=== PATIENT | female | born 1955 | race Caucasian/White ===

== ENCOUNTER 2024-05-25 16:12 | Emergency (ER) | payer SELFPAY ==
[2024-05-25 16:23] VITALS: RESP 18; TEMP 98.2
--- NOTE | 2024-05-25 16:46 | ED ---
Female Urogenital HPI - General Chief complaint: Urogenital Stated complaint: UTI Time Seen by Provider: 05/25/24 16:30 Source: patient, RN notes reviewed Mode of arrival: ambulatory Limitations: no limitations - History of Present Illness Initial comments: 68-year-old female presenting to the ER with chief complaint of dysuria x 2 days. States it feels as though it is "warm" when she urinates as well as urinary frequency. Denies back pain, abdominal pain, fever, chills, vomiting, vaginal discharge. Denies any known medical conditions. - Related Data Previous Rx's Medication Instructions Recorded Sulfamethox-Tmp 800-160Mg [Bactrim 1 each PO Q12HR 7 Days #14 tab 05/25/24 Ds] Allergies Allergy/AdvReac Type Severity Reaction Status Date / Time latex Allergy Unknown Verified 05/25/24 16:18 Penicillins Allergy Unknown Verified 05/25/24 16:18 lactose AdvReac Unknown Verified 05/25/24 16:18 Review of Systems ROS Statement: Those systems with pertinent positive or pertinent negative responses have been documented in the HPI. ROS Other: All systems not noted in ROS Statement are negative. Past Medical History Additional Past Medical History / Comment(s): torticollis, scoliosis Past Surgical History: Back Surgery Past Psychological History: Depression Smoking Status: Never smoker Past Alcohol Use History: None Reported Past Drug Use History: None Reported General Exam Limitations: no limitations General appearance: alert, in no apparent distress Head exam: Present: atraumatic, normocephalic, normal inspection Eye exam: Present: normal appearance, PERRL, EOMI. Absent: scleral icterus, conjunctival injection, periorbital swelling GI/Abdominal exam: Present: soft, normal bowel sounds. Absent: distended, tenderness, guarding, rebound, rigid Extremities exam: Absent: calf tenderness Neurological exam: Present: alert, oriented X3 Psychiatric exam: Present: normal affect, normal mood Skin exam: Present: warm, dry, intact, normal color Course Vital Signs 05/25/24 05/25/24 16:18 21:10 Temperature 98.2 F Pulse Rate 81 78 Respiratory 18 18 Rate Blood Pressure 164/106 155/89 O2 Sat by Pulse 98 95 Oximetry Medical Decision Making - Medical Decision Making Was pt. sent in by a medical professional or institution (, PA, DIGITAL COURT REPORTER, urgent care, hospital, or penitentiary...) When possible be specific @ -No Did you speak to anyone other than the patient for history (EMS, parent, family, police, friend...)? What history was obtained from this source @ -No Did you review nursing and triage notes (agree or disagree)? Why? @ -I reviewed and agree with nursing and triage notes Were old charts reviewed (outside hosp., previous admission, EMS record, old EKG, old radiological studies, urgent care reports/EKG's, penitentiary records)? Report findings @ -No old charts were reviewed Differential Diagnosis (chest pain, altered mental status, abdominal pain women, abdominal pain men, vaginal bleeding, weakness, fever, dyspnea, syncope, headache, dizziness, GI bleed, back pain, seizure, CVA, palpatations, mental health, musculoskeletal)? @ -Urinary tract infection, STD, nephrolithiasis EKG interpreted by me (3pts min.). @ -None X-rays interpreted by me (1pt min.). @ -None done CT interpreted by me (1pt min.). @ -None done U/S interpreted by me (1pt. min.). @ -None done What testing was considered but not performed or refused? (CT, X-rays, U/S, labs)? Why? @ -Lab work considered but deferred deferred due to no red flag symptoms or abdominal tenderness What meds were considered but not given or refused? Why? @ -None Did you discuss the management of the patient with other professionals (professionals i.e. , PA, DIGITAL COURT REPORTER, lab, RT, psych nurse, transition social worker, bar porter, teacher, chief quality officer, caser in)? Give summary @ -No Was smoking cessation discussed for >3mins.? @ -No Was critical care preformed (if so, how long)? @ -No Were there social determinants of health that impacted care today? How? (Homelessness, low income, unemployed, alcoholism, drug addiction, transportation, low edu. Level, literacy, decrease access to med. care, half-way, rehab)? @ -No Was there de-escalation of care discussed even if they declined (Discuss DNR or withdrawal of care, Hospice)? DNR status @ -No What co-morbidities impacted this encounter? (DM, HTN, Smoking, COPD, CAD, Cancer, CVA, ARF, Chemo, Hep., AIDS, mental health diagnosis, sleep apnea, morbid obesity)? @ -None Was patient admitted / discharged? Hospital course, mention meds given and r oute, prescriptions, significant lab abnormalities, going to OR and other pertinent info. @ -Discharged. This is a 68-year-old female presenting with dysuria x 2 days. Patient is afebrile with no CVA tenderness. No red flag symptoms. Patient is hypertensive at 164/106, decreased to 155/89 upon recheck. Urinalysis reveals moderate blood, small leukocyte esterase, urine culture sent. Patient updated on results. Will treat with Bactrim for possible UTI. Advised close follow-up with PCP within the week. Return precautions discussed. Patient is agreeable to plan. Case was discussed with my ED attending Dr. Canales. Undiagnosed new problem with uncertain prognosis? @ -No Drug Therapy requiring intensive monitoring for toxicity (Heparin, Nitro, Insulin, Cardizem)? @ -No Were any procedures done? @ -No Diagnosis/symptom? @ -Urinary tract infection Acute, or Chronic, or Acute on Chronic? @ -Acute Uncomplicated (without systemic symptoms) or Complicated (systemic symptoms)? @ -Uncomplicated Side effects of treatment? @ -No Exacerbation, Progression, or Severe Exacerbation? @ -No Poses a threat to life or bodily function? How? (Chest pain, [place], [place], pneumonia, PE, COPD, DKA, ARF, appy, cholecystitis, CVA, Diverticulitis, Homicidal, Suicidal, threat to staff... and all critical care pts) @ -No - Lab Data Lab Results 05/25/24 Range/Units 16:39 Urine Color Yellow Urine Appearance Cloudy H (Clear) Urine pH 5.5 (5.0-8.0) Ur Specific [place] 1.032 (1.001-1.035) Urine Protein Trace H (Negative) Urine Glucose (UA) Negative (Negative) Urine Ketones Negative (Negative) Urine Blood Moderate H (Negative) Urine Nitrite Negative (Negative) Urine Bilirubin Negative (Negative) Urine Urobilinogen 4.0 (<2.0) mg/dL Ur Leukocyte Esterase Small H (Negative) Urine RBC 8 H (0-5) /hpf Urine WBC 7 H (0-5) /hpf Ur Squamous Epith Cells 1 (0-4) /hpf Calcium Oxalate Crystal Rare H (None) /hpf Disposition Clinical Impression: Urinary tract infection Disposition: HOME SELF-CARE Condition: Stable Instructions (If sedation given, give patient instructions): Urinary Tract Infection in Women (ED) Additional Instructions: Follow-up with PCP as discussed. Take Bactrim twice daily for 7 days. Please return to the Emergency Department if symptoms worsen or any other concerns. Prescriptions: Sulfamethox-Tmp 800-160Mg [Bactrim Ds] 1 each PO Q12HR 7 Days #14 tab Is patient prescribed a controlled substance at d/c from ED?: No Referrals: None,Stated [Primary Care Provider] - 1-2 days Time of Disposition: 20:51
[2024-05-25 20:17] LABS: Appearance,Urine Cloudy (Clear); Bilirubin,Urine Negative (Negative); Blood,Urine Moderate (Negative); Color,Urine Yellow; Glucose,Urine (UA) Negative (Negative); Ketones,Urine Negative (Negative); Leukocyte Esterase,Urine Small (Negative); Nitrite,Urine Negative (Negative); PH, Urine 5.5 (5.0-8.0); Protein,Urine Trace (Negative); Specific Gravity,Urine 1.032 (1.001-1.035)
[2024-05-25 20:49] LABS: RBC,Urine 8 /hpf (0-5); WBC,Urine 7 /hpf (0-5)
[2024-05-25 20:50] LABS: Calcium Oxalate Crystals,Urine Rare /hpf; Squamous Epithelial Cell,Urine 1 /hpf (0-4)
[2024-05-25] MEDS: SULFAMETHOX-TMP 800-160MG 1 EACH TAB PO STA (21:09)
[2024-05-25 21:11] VITALS: BP 155/89; PULSE 78
== END 2024-05-25 21:10 | disposition home or self-care (01) ==
LOC: EC 16:12
CPT/HCPCS: 81001; 99283

== ENCOUNTER 2024-09-23 15:53 | Inpatient (IN) | payer OTHER ==
--- NOTE | 2024-09-23 16:59 | ED ---
Altered Mental Status HPI - General Chief Complaint: Altered Mental Status Stated Complaint: Petition Time Seen by Provider: 09/23/24 16:16 Source: patient Mode of arrival: ambulatory Limitations: no limitations - History of Present Illness Initial Comments: 69-year-old female here as a petition for mental health evaluation. Patient reports that she feels very stressed, she recently received housing after period of homelessness in which she was living in her car. She reports that she has no income and no mental health team. Patient was petitioned by her public guardian due to displaying behavior that is described as paranoid, dissociated, and delu sional. Patient has no suicidal or homicidal ideation. Denies drug or alcohol use. No physical complaints today. - Related Data Home Medications Medication Instructions Recorded Confirmed No Known Home Medications 09/23/24 09/23/24 Allergies Allergy/AdvReac Type Severity Reaction Status Date / Time latex Allergy Unknown Verified 09/23/24 17:23 Penicillins Allergy Unknown Verified 09/23/24 17:23 Review of Systems ROS Statement: Those systems with pertinent positive or pertinent negative responses have been documented in the HPI. ROS Other: All systems not noted in ROS Statement are negative. Past Medical History Additional Past Medical History / Comment(s): torticollis, scoliosis Past Surgical History: Back Surgery Past Psychological History: Depression Smoking Status: Never smoker Past Alcohol Use History: None Reported Past Drug Use History: None Reported General Exam Limitations: no limitations General appearance: alert, in no apparent distress Head exam: Present: atraumatic, normocephalic, normal inspection Eye exam: Present: normal appearance, EOMI Neck exam: Present: normal inspection. Absent: meningismus Respiratory exam: Absent: respiratory distress Cardiovascular Exam: Present: regular rate Neurological exam: Present: alert, oriented X3 Expanded Eye Response: (4) open spontaneously Motor Response: (6) obeys commands Verbal Response: (5) oriented Kimmy Total: 15 Psychiatric exam: Present: normal affect, normal mood Skin exam: Present: warm, dry, normal color Course Vital Signs 09/23/24 09/24/24 16:01 01:59 Temperature 98.0 F Pulse Rate 95 76 Respiratory 20 18 Rate Blood Pressure 159/88 164/77 O2 Sat by Pulse 99 97 Oximetry Medical Decision Making - Medical Decision Making Was pt. sent in by a medical professional or institution (Dr., PA, ECOLOGICAL MODELER, urgent care, hospital, or intermediate...) When possible be specific @ -No Did you speak to anyone other than the patient for history (EMS, parent, family, police, friend...)? What history was obtained from this source @ -No Did you review nursing and triage notes (agree or disagree)? Why? @ -I reviewed and agree with nursing and triage notes Were old charts reviewed (outside hosp., previous admission, EMS record, old EKG, old radiological studies, urgent care reports/EKG's, intermediate records)? Report findings @ -No old charts were reviewed Differential Diagnosis (chest pain, altered mental status, abdominal pain women, abdominal pain men, vaginal bleeding, weakness, fever, dyspnea, syncope, headache, dizziness, GI bleed, back pain, seizure, CVA, palpatations, mental health, musculoskeletal)? @ -Differential Mental Health Depression, anxiety, bipolar, psychosis, schizophrenia, borderline personality, situational depression, adjustment disorder, behavioral disorder, brain tumor, malingering, substance abuse, encephalopathy, medication reaction, dementia, hypothyroidism, degenerative neurologic disorder, lupus.... This is not meant to be all-inclusive list EKG interpreted by me (3pts min.). @ -As above X-rays interpreted by me (1pt min.). @ -None done CT interpreted by me (1pt min.). @ -None done U/S interpreted by me (1pt. min.). @ -None done What testing was considered but not performed or refused? (CT, X-rays, U/S, labs)? Why? @ -None What meds were considered but not given or refused? Why? @ -None Did you discuss the management of the patient with other professionals (professionals i.e. , PA, ECOLOGICAL MODELER, lab, RT, psych nurse, geriatric social work professor, bevel operator, teacher, employment security officer, family service caseworker)? Give summary @ -EPS nurse recommends admission Was smoking cessation discussed for >3mins.? @ -No Was critical care preformed (if so, how long)? @ -No Were there social determinants of health that impacted care today? How? (Homelessness, low income, unemployed, alcoholism, drug addiction, transportation, low edu. Level, literacy, decrease access to med. care, snf, rehab)? @ -No Was there de-escalation of care discussed even if they declined (Discuss DNR or withdrawal of care, Hospice)? DNR status @ -No What co-morbidities impacted this encounter? (DM, HTN, Smoking, COPD, CAD, Cancer, CVA, ARF, Chemo, Hep., AIDS, mental health diagnosis, sleep apnea, mor bid obesity)? @ -None Was patient admitted / discharged? Hospital course, mention meds given and ro isr[place], prescriptions, significant lab abnormalities, going to OR and other pertinent info. @ -69-year-old female petitioned for mental health evaluation. No suicidal or homicidal ideation. Patient does have a mild UTI, she is medically cleared for evaluation by EPS. She is treated with Keflex. They are recommending admission. My attending is Dr. Ortiz Undiagnosed new problem with uncertain prognosis? @ -No Drug Therapy requiring intensive monitoring for toxicity (Heparin, Nitro, Insulin, Cardizem)? @ -No Were any procedures done? @ -No Diagnosis/symptom? @ -Psychosis Acute, or Chronic, or Acute on Chronic? @ -Acute Uncomplicated (without systemic symptoms) or Complicated (systemic symptoms)? @ -Complicated Side effects of treatment? @ -No Exacerbation, Progression, or Severe Exacerbation? @ -No Poses a threat to life or bodily function? How? (Chest pain, [place], [place], pneumonia, PE, COPD, DKA, ARF, appy, cholecystitis, CVA, Diverticulitis, Homicidal, Suicidal, threat to staff... and all critical care pts) @ -Yes - Lab Data Result diagrams: 09/25/24 08:18 09/25/24 08:18 Lab Results 09/23/24 09/23/24 Range/Units 22:00 22:45 Urine Color Light Yellow Urine Appearance Clear (Clear) Urine pH 7.0 (5.0-8.0) Ur Specific [place] 1.019 (1.001-1.035) Urine Protein Trace H (Negative) Urine Glucose (UA) Negative (Negative) Urine Ketones Negative (Negative) Urine Blood Small H (Negative) Urine Nitrite Negative (Negative) Urine Bilirubin Negative (Negative) Urine Urobilinogen <2.0 (<2.0) mg/dL Ur Leukocyte Esterase Small H (Negative) Urine RBC 37 H (0-5) /hpf Urine WBC 13 H (0-5) /hpf Ur Squamous Epith Cells 1 (0-4) /hpf Urine Mucus Rare H (None) /hpf Urine Opiates Screen Not Detected (NotDetected) Ur Oxycodone Screen Not Detected (NotDetected) Urine Methadone Screen Not Detected (NotDetected) Ur Barbiturates Screen Not Detected (NotDetected) U Tricyclic Antidepress Not Detected (NotDetected) Ur Phencyclidine Scrn Not Detected (NotDetected) Ur Amphetamines Screen Not Detected (NotDetected) U Methamphetamines Scrn Not Detected (NotDetected) U Benzodiazepines Scrn Not Detected (NotDetected) Urine Cocaine Screen Not Detected (NotDetected) U Marijuana (THC) Screen Not Detected (NotDetected) SARS-CoV-2 (PCR) Not Detected (Not Detectd) Disposition Clinical Impression: Delusional thoughts Disposition: ADMITTED IP TO THIS HOSP Condition: Fair
[2024-09-23 22:41] LABS: Appearance,Urine Clear (Clear); Bilirubin,Urine Negative (Negative); Blood,Urine Small (Negative); Color,Urine Light Yellow; Glucose,Urine (UA) Negative (Negative); Ketones,Urine Negative (Negative); Leukocyte Esterase,Urine Small (Negative); Mucus,Urine Rare /hpf; Nitrite,Urine Negative (Negative); Protein,Urine Trace (Negative); RBC,Urine 37 /hpf (0-5); Specific Gravity,Urine 1.019 (1.001-1.035); Squamous Epithelial Cell,Urine 1 /hpf (0-4); Urobilinogen,Urine <2.0 mg/dL (<2.0); WBC,Urine 13 /hpf (0-5)
[2024-09-23 22:43] LABS: Amphetamine Screen,Urine Not Detected (NotDetected); Barbiturate Screen,Urine Not Detected (NotDetected); Benzodiazepines Screen,Urine Not Detected (NotDetected); Cocaine Screen,Urine Not Detected (NotDetected); Methadone Screen, Urine Not Detected (NotDetected); Opiate Screen,Urine Not Detected (NotDetected); Oxycodone Screen, Urine Not Detected (NotDetected); Phencyclidine Screen,Urine Not Detected (NotDetected); Tricyclic Antidepressant,Urine Not Detected (NotDetected); Urn Cannabinoid Scrn Not Detected (NotDetected)
[2024-09-24] MEDS: SULFAMETHOX-TMP 800-160MG 1 EACH TAB PO SCH (00:23)
[2024-09-24] MEDS ORDERED: IBUPROFEN 600 MG TAB PO PRN (01:42)
[2024-09-24] MEDS ORDERED: LORazepam 2 MG/ML INJ IM PRN (01:42)
[2024-09-24] MEDS ORDERED: haloperidoL 5 MG TAB PO PRN (01:42)
[2024-09-24] MEDS ORDERED: LORazepam 1 MG TAB PO PRN (01:42)
[2024-09-24] MEDS ORDERED: HALOPERIDOL LACTATE 5 MG/ML 1 ML VIAL IM PRN (01:42)
[2024-09-24] MEDS ORDERED: ACETAMINOPHEN TAB 325 MG TAB PO PRN (01:42)
[2024-09-24] MEDS: NICOTINE 14MG/24HR PATCH TRANSDERM SCH (09:05)
[2024-09-24] MEDS ORDERED: FLUTICASONE NASAL 50MCG/SPRAY 16GM BTL EA NOSTRIL PRN (11:21)
--- NOTE | 2024-09-24 11:36 | P.MDCNMH ---
History of Present Illness H&P Date: 09/24/24 Chief Complaint: medical evaluation for U 69-year-old woman, homeless, presented for evaluation of mental health needs. Medicine was consulted for medical evaluation. Patient has multiple complaints including allergies, rash on her lower extremities, pain in her back. She requests allergy medications, muscle relaxers, antibiotics. History is challenging to fully discern. However, from my understanding, patient has had long-term lower extremity venous stasis changes from venous insufficiency, but has a new rash on her left lower extremity that she reports sometimes feels hot, itchy, painful. In regards to her pain in her back, she reports its chronic and as a consequence of not having a good mattress to sleep on and requests approximately 30 mg of "muscle relaxer". In addition, she is reporting allergy medication, "but not one of the ones that affects old people" due to her history of allergic rhinitis. Patient is afebrile, 176/81, heart rate 70, 100% on room air. Urinalysis shows small amount of blood, small amount of leukocyte esterase, 37 red blood cells, 13 white blood cells, trace protein. Urine tox screen is negative. COVID is negative. No imaging to review. Review of systems is challenging due to patient's psychosis. Gen: In NAD, non-toxic HEENT: normocephalic, atraumatic, hearing acuity is intant, mucous membranes moist CVS: perfusing all extremities well, no pitting edema, Respiratory: symmetric chest expansion, no accessory muscle use, GI: soft, NTTP, ND, : no suprapubic tenderness, no CVA tenderness MSK/Derm: no rashes, cyanosis Neuro: CN II-XII intact, no motor weakness, Labs and imaging as above Assessment/plan: Left lower extremity cellulitis Venous Insufficiency -Patient was started on Bactrim in the emergency room, I agree with this and have no changes, recommend follow-up lab work in the morning -Will add Benadryl cream for pruritus Hypertension, stage II Proteinuria Microscopic Hematuria -defer management to outpatient for titration of anti-HTNs -for now will start lisinopril given trace proteinuria, but defer initiation of HCTZ or amlodipine to outpatient -patient should have UA rechecked as outpatient for microscopic hematuria and referred to urologist if still + Allergic rhinitis -Fluticasone intranasal as needed Thank you for this consult, please reach out if any further questions/concerns. Past Medical History Additional Past Medical History / Comment(s): torticollis, scoliosis Past Surgical History: Back Surgery Past Psychological History: Depression Smoking Status: Never smoker Past Alcohol Use History: None Reported Past Drug Use History: None Reported Medications and Allergies Home Medications Medication Instructions Recorded Confirmed Type No Known Home Medications 09/23/24 09/23/24 History Allergies Allergy/AdvReac Type Severity Reaction Status Date / Time latex Allergy Unknown Verified 09/23/24 17:23 Penicillins Allergy Unknown Verified 09/23/24 17:23 lactose AdvReac Unknown Verified 09/23/24 17:23 Physical Exam Osteopathic Statement: *. No significant issues noted on an osteopathic structural exam other than those noted in the History and Physical/Consult. Vitals: Vital Signs Temp Pulse Pulse Resp BP BP Pulse Ox 09/24/24 08:10 97.8 F 70 176/81 100 09/24/24 04:48 97.8 F 70 18 176/81 100 09/24/24 01:59 76 18 164/77 97 09/23/24 16:01 98.0 F 95 20 159/88 99 Intake and Output 09/23/24 09/24/24 09/24/24 22:59 06:59 14:59 Other: Weight 72.575 kg 68.22 kg Cranial Nerve Examination - Cranial Nerves Cranial Nerve II- Optic: Intact Cranial Nerve III- Oculomotor: Intact Cranial Nerve IV- Trochlear: Intact Cranial Nerve V- Trigeminal: Intact Cranial Nerve - Abducens: Intact Cranial Nerve VII- Facial: Intact Cranial Nerve VIII- Auditory: Intact Cranial Nerve IX- Glossopharyngeal: Intact Cranial Nerve X- Vagus: Intact Cranial Nerve XI- Accessory: Intact Cranial Nerve XII- Hypoglossal: Intact Results Labs: Abnormal Lab Results - Last 24 Hours (Table) 09/23/24 Range/Units 22:00 Urine Protein Trace H (Negative) Urine Blood Small H (Negative) Ur Leukocyte Esterase Small H (Negative) Urine RBC 37 H (0-5) /hpf Urine WBC 13 H (0-5) /hpf Urine Mucus Rare H (None) /hpf
[2024-09-24] MEDS: lisinopriL 10 MG TAB PO SCH (14:13)
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
[2024-09-24] MEDS: diphenhydrAMINE 2% CREAM 28.4 GM TUBE TOPICAL SCH (16:51)
[2024-09-24] MEDS: QUEtiapine 25 MG TAB PO SCH (22:02)
[2024-09-25 08:44] LABS: Anisocytosis Slight; Basophils # (A) 0.1 k/uL (0-0.2); Basophils % (A) 1 %; Eosinophils # (A) 0.4 k/uL (0-0.7); Eosinophils % (A) 4 %; HCT 42.3 % (34.0-46.0); HGB 13.7 gm/dL (11.4-16.0); Lymphocytes # (A) 2.8 k/uL (1.0-4.8); Lymphocytes % (A) 26 %; MCH 30.3 pg (25.0-35.0); MCHC 32.3 g/dL (31.0-37.0); MCV 93.8 fL (80.0-100.0); Mean Platelet Volume 7.7; Monocytes # (A) 0.7 k/uL (0-1.0); Monocytes % (A) 7 %; Neutrophils # (A) 6.3 k/uL (1.3-7.7); Neutrophils % (A) 60 %; Platelet Count 310 k/uL (150-450); RBC 4.51 m/uL (3.80-5.40); RDW 16.1 % (11.5-15.5); WBC 10.5 k/uL (3.8-10.6)
[2024-09-25 08:54] LABS: ALT 51 U/L (4-34); AST 43 U/L (14-36); African American GFR (CKD) 72 (>60 ml/min/1.73 sqM); Alkaline Phosphatase 158 U/L (38-126); Anion Gap 8 mmol/L; Bilirubin, Delta 0.2 mg/dL (0.0-0.2); Bilirubin,Unconjugated 0.5 mg/dL (0.0-1.1); Blood Urea Nitrogen 28 mg/dL (7-17); Calcium 9.4 mg/dL (8.4-10.2); Carbon Dioxide 25 mmol/L (22-30); Chloride 105 mmol/L (98-107); Glucose 83 mg/dL (74-99); Non-African American GFR(CKD) 62 (>60 ml/min/1.73 sqM); Potassium 4.7 mmol/L (3.5-5.1); Sodium 138 mmol/L (137-145); Total Bilirubin 0.7 mg/dL (0.2-1.3); Total Protein 6.7 g/dL (6.3-8.2)
--- NOTE | 2024-09-25 10:37 | P.PN ---
Progress Note - Text Progress Note Date: 09/25/24 Interval HIstory: Patient was seen today and was agreeable to speak to personal lines underwriter in the office. she states that she felt dizzy when she woke up. claims that she is still taking the abx for UTI. she claims that she did not take the seroquel last night. continues to have poor insight and judgment. does nopt beleive she needs hospitalization, focused on discharge. continues to ramble, is illogical. states she did not sleep well last night. has been eating fairly. she is denying any AH or Vh and denies any SI. focused on obtaining "muscle relaxers". MENTAL STATUS EXAM: General Appearance: Patient appears to be guarded in stature, wearing hospital gown, bardales hair, stated age is alert, rambles at times, difficult to redirect. Patient appears to have poor hygiene and grooming. Behavior: Patient is seated without any agitated behavior. Difficult to redirect, attempts to cooperate Speech: Patient's speech is fluent and nonpressured. Rambles, tangential, loud at times. Mood/Affect: Patient reports their mood is "just fine", affect is congruent and labile, Suicidality/Homicidality: Patient denies having any homicidal ideation intent or plan. Denies any suicidal ideations intent or plan Perceptions: Patient denies any visual hallucinations and denies any auditory hallucinations Though content/process: Delusional, endorsing paranoia. Rambling, illogical Memory and concentration: AOX3, grossly intact for the purposes of this session Judgment and insight: Poor/limited. IMPRESSIONS: Psychosis unspecified PLAN: -Patient is admitted under involuntary status to [facility]HU for stabilization of psychiatric symptoms and safety. Patient has not signed adult voluntary form and has not signed medication consent and is placed in patient's chart -Medications : Seroquel 25 mg nightly for sleep/psychosis/mood stabilization. Melatonin 5 mg nightly as needed for sleep. she is refusing the medications. -Ativan and Haldol PRN for agitation/aggression -NRT -not needed as patient does not smoke -SW on board for discharge planning. Encourage patient to participate in groups to work on coping skills. Will await deferral and court date.
[2024-09-25 14:23] LABS: Chol/HDL Ratio 4.06 Ratio; LDL Cholesterol,Calculated 119.7 mg/dL (0.0-131.0)
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
[2024-09-28] MEDS ORDERED: OLANZapine 10 MG VIAL IM PRN (14:16)
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
[2024-09-28] MEDS: risperiDONE 0.5 MG TAB PO SCH (21:14)
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
[2024-09-29] MEDS: diphenhydrAMINE 2% CREAM 28.4 GM TUBE TOPICAL SCH (13:41)
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
[2024-09-30] MEDS: risperiDONE 1 MG TAB PO SCH (20:56)
--- NOTE | 2024-10-01 17:50 | P.PN ---
Subjective Progress Note Date: 10/01/24 Principal diagnosis: schizophrenia Interval History: Patient was seen laying in bed and was directable and agreeable to speak with headline writer in the room. She is walking around without shoes on an did not want to come down to the office and talk to me. She continues to display predominant paranoia, feeling as though everyone is against her. She reports sleeping and eating okay. At this time patient denies any suicidal or homicidal ideations, intent or plan. Patient denies any auditory, visual hallucinations. Patient denies any side effects from the medications and has been compliant with meds. Mental Status Exam:vague no insight into why she is here she did say that the medication that she is on she is tolerating well General Appearance: Patient appears to be stated age is alert, directable, and cooperative. She has fair grooming and hygiene Behavior: Patient is calmly laying without any agitated behavior. Speech: Patient's speech is fluent and talkative. Mood/Affect: Mood is irritable, affect is congruent and constricted. Suicidality/Homicidality: Patient denies having any suicidal or homicidal ideation intent or plan. 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 Patient has not signed adult voluntary form and medication consent and was placed in patient's chart. Patient court ordered 60-180 days -Medications: Increase Risperdal to 1 mg twice daily for psychosis with as needed IM Zyprexa backup per court order if patient refuses -When necessary Ativan and Haldol for agitation/aggression. -Labs: Reviewed -SW on board for discharge planning. Encouraged the patient to participate in milieu. Anticipate discharge back to her apartment pending transition to [facility] Objective - Vital Signs Vital signs: Vital Signs Temp 96.9 F L 09/30/24 20:55 Pulse 109 H 10/01/24 08:53 Resp 20 10/01/24 08:53 BP 85/60 10/01/24 08:53 Pulse Ox 100 02/28/25 20:55 FiO2 - Labs CBC & Chem 7: 09/25/24 08:18 09/25/24 08:18
--- NOTE | 2024-10-02 09:02 | P.PN ---
Subjective Progress Note Date: 10/02/24 Principal diagnosis: schizophrenia Interval History: Patient was in the dick waiting for her medications Shecame readily to talk to me. She said she slept well denied any side effects on the medication denied any paranoid feelings at this time she said that they have faded. At this time patient denies any suicidal or homicidal ideations, intent or plan. Patient denies any auditory, visual hallucinations. she talked about a book she is reading and seemed quite knowledgeable Mental Status :patient was alert good eye contact. She has trouble hearing but her responses made sense to not pressured did not ramble Exam:vague no insight into why she is here she did say that the medication that she is on she is tolerating well General Appearance: Patient appears to be stated age is alert, directable, and cooperative. She has fair grooming and hygiene Behavior: Patient is calmly without any agitated behavior. Speech: Patient's speech is fluent and talkative. Mood/Affect: Mood is calm affect is congruent and constricted. Suicidality/Homicidality: Patient denies having any suicidal or homicidal ideation intent or plan. 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 Schizophrenia Plan:no change in medication -Patient continues to meet criteria for inpatient psychiatric admission for symptom stabilization and safety. Patient has not signed adult voluntary form and medication consent and was placed in patient's chart. Patient court ordered 60-180 days -Medications: Increase Risperdal to 1 mg twice daily for psychosis with as needed IM Zyprexa backup per court order if patient refuses -When necessary Ativan and Haldol for agitation/aggression. -Labs: Reviewed -SW on board for discharge planning. Encouraged the patient to participate in milieu. Anticipate discharge back to her apartment pending transition to [facility] Objective - Vital Signs Vital signs: Vital Signs Temp 96.9 F L 09/30/24 20:55 Pulse 109 H 10/01/24 08:53 Resp 20 10/01/24 08:53 BP 85/60 10/01/24 08:53 Pulse Ox 100 09/30/24 20:55 FiO2 - Labs CBC & Chem 7: 09/25/24 08:18 09/25/24 08:18
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
[2024-10-04] MEDS: MAG HYDROX/AL HYDROX/SIMETH 355 ML BOTTLE PO PRN (14:46)
[2024-10-04] MEDS: risperiDONE 100 MG/0.28 ML SYR (NO COST) SQ ONE (14:46)
[2024-10-05 05:28] VITALS: RESP 18; TEMP 98.1
[2024-10-05 09:38] VITALS: BP 101/63; PULSE 80
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
== END 2024-10-05 14:17 | disposition home or self-care (01) | DRG 885 ==
LOC: EC 15:53 → 3MHU 09-24 01:36
PROVIDERS: ADMIT Psychiatry & Neurology Psychiatry; ATTEND Psychiatry & Neurology Psychiatry
DX: F20.9 Schizophrenia, unspecified (principal); F29 Unspecified psychosis not due to a substance or known physiological condition; F32.A Depression, unspecified; I10 Essential (primary) hypertension; L03.116 Cellulitis of left lower limb; R45.851 Suicidal ideations; Z11.52 Encounter for screening for COVID-19; F41.9 Anxiety disorder, unspecified; I87.2 Venous insufficiency (chronic) (peripheral); I87.8 Other specified disorders of veins; J30.9 Allergic rhinitis, unspecified; M41.9 Scoliosis, unspecified; L29.9 Pruritus, unspecified; R31.29 Other microscopic hematuria; Z91.148 Patient's other noncompliance with medication regimen for other reason; Z88.0 Allergy status to penicillin; Z91.040 Latex allergy status
CPT/HCPCS: 80053; 80061; 80306; 81001; 82075; 82248; 83036; 84443; 85025; 87635